=== PATIENT | female | born 1945 | race Caucasian/White ===

== ENCOUNTER → 2018-12-04 | Outpatient (CLI) | payer MEDICARE, MEDICAID ==
--- NOTE | 2018-12-04 11:38 | REP ---
Bilateral lower extremity arterial Doppler ultrasound: History: Bilateral leg pain. The vein graft installed right leg. Findings: Ankle brachial indices are low bilaterally measured at 0.79 on the right and 0.48 on the left. A reversed greater saphenous vein graft is seen from the right common femoral artery to the tibioperoneal trunk in the right leg. This graft is patent. Proximal anastomotic peak systolic velocity is 131 cm/sec in the graft. At mid graft, PSV is 62 cm/S. The distal graft PSV 41 and distal anastomotic PSV of 25 cm/S. The [place] superficial femoral artery on the right is occluded. Monophasic flow waveforms are seen throughout the right lower and left lower extremity arteries. 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 The popliteal artery is revascularized on the left. The proximal AT A could not be seen. Right lower extremity arterial Doppler velocity chart: CF A 221 cm/S Profunda 53 Proximal SFA occluded Mid SFA occluded Distal SFA occluded Popliteal 14 cm/S reverse flow Proximal AT A 37 Tibioperoneal trunk reverse flow 39 cm/S Proximal TESTING MACHINE OPERATOR not seen, Distal TESTING MACHINE OPERATOR 826 Distal AT A 80 Left lower extremity arterial Doppler velocity chart: CF A 141 cm/S Profunda 90 Proximal SFA 104/221 Mid SFA occluded Distal SFA occluded Popliteal reverse flow 38 cm/S Proximal a AT A not seen Tibioperoneal trunk 62 Proximal TESTING MACHINE OPERATOR 22 Distal TESTING MACHINE OPERATOR 28 Distal AT A 11 Electronically Signed by Jeff Escobar MD 12/04/2018 11:29 A
== END ==
LOC: M RAD 08:45
PROVIDERS: ATTEND Surgery Vascular Surgery
DX: I73.9 Peripheral vascular disease, unspecified (principal)

== ENCOUNTER → 2023-04-01 | Outpatient (CLI) | payer MEDICAID, MEDICARE ==
[~2023-04-01] MED LIST: ACET650T61 PO; ATOR1TAB21; CLOP75TA2; LOSA25TA13; METO1TAB32; SERT25TA21
== END ==
LOC: M PLARAD 15:01
PROVIDERS: ATTEND Specialist
DX: C78.01 Secondary malignant neoplasm of right lung (principal)
CPT/HCPCS: 78815; A9552

== ENCOUNTER → 2023-04-24 | Outpatient (CLI) | payer MEDICAID, MEDICARE ==
[~2023-04-24] MED LIST changes: +LIDOCAINE 1% MDV 20ML VIAL As Ordered ONE
[2023-04-24 08:25] VITALS: TEMP 98.2
[2023-04-24 09:16] LABS: INR 1.14; PROTHROMBIN TIME 14.3 SECONDS (12.5-14.5)
[2023-04-24 11:51] VITALS: BP 119/57; O2SAT 96
== END ==
LOC: M IRPRO 08:13
PROVIDERS: ATTEND Specialist
DX: C34.91 Malignant neoplasm of unspecified part of right bronchus or lung (principal)

== ENCOUNTER → 2023-05-03 | Outpatient (CLI) | payer MEDICARE ==
[~2023-05-03] MED LIST changes: -LIDOCAINE 1% MDV 20ML VIAL As Ordered ONE
== END ==
LOC: M ONCR 15:09
PROVIDERS: ATTEND General Practice
DX: C34.31 Malignant neoplasm of lower lobe, right bronchus or lung (principal); Z71.2 Person consulting for explanation of examination or test findings; Z79.02 Long term (current) use of antithrombotics/antiplatelets; Z79.899 Other long term (current) drug therapy; Z80.3 Family history of malignant neoplasm of breast; Z87.891 Personal history of nicotine dependence; Z88.5 Allergy status to narcotic agent; Z90.710 Acquired absence of both cervix and uterus

== ENCOUNTER 2023-05-24 10:02 | Outpatient (RCR) | payer MEDICARE ==
[~2023-05-24 10:02] MED LIST changes: -ATOR1TAB21; +ATOR1TAB21 PO; -CLOP75TA2; +CLOP75TA2 PO; -LOSA25TA13; +LOSA25TA13 PO; -METO1TAB32; +METO1TAB32 PO; -SERT25TA21; +SERT25TA21 PO
== END 2023-06-20 ==
LOC: M ONCR 10:02
PROVIDERS: ATTEND General Practice
DX: Z51.0 Encounter for antineoplastic radiation therapy (principal); C34.31 Malignant neoplasm of lower lobe, right bronchus or lung

== ENCOUNTER 2023-07-04 09:57 | Observation (INO) | payer MEDICARE ==
[~2023-07-04] VITALS: Ht 167.6 cm; Wt 42.7 kg
[2023-07-04 14:53] LABS: BASO % 0.2 % (0.0-1.0); EOS % 0.3 % (0.0-3.0); HEMOGLOBIN 10.3 g/dl (12.0-15.5); LYMPH # 0.3 10^3/uL (1.5-5.0); LYMPH % 2.5 % (24.0-44.0); MEAN CORPUSCULAR HEMOGLOBIN 23.6 pg (27.0-33.0); MEAN CORPUSCULAR HGB CONC 29.4 g/dl (32.0-36.5); MEAN CORPUSCULAR VOLUME 80.1 fl (80.0-96.0); MONO # 0.7 10^3/uL (0.0-0.8); MONO % 5.7 % (2.0-8.0); NEUTROPHILS # 11.5 10^3/uL (1.5-8.5); NEUTROPHILS % 90.9 % (36.0-66.0); PLATELET COUNT, AUTOMATED 544 10^3/uL (150-450); RED BLOOD COUNT 4.37 10^6/uL (4.00-5.40); WHITE BLOOD COUNT 12.6 10^3/uL (4.0-10.0)
[2023-07-04] MEDS: ACETAMINOPHEN 325 MG TAB PO ONE (15:16)
[2023-07-04 15:19] LABS: ALBUMIN 2.2 G/DL (3.2-5.2); ALKALINE PHOSPHATASE 89 U/L (46-116); ALT/SGPT 29 U/L (7.0-40); AST/SGOT 27 U/L (<34); BILIRUBIN,TOTAL 0.2 MG/DL (0.3-1.2); BLOOD UREA NITROGEN 17 MG/DL (9-23); CALCIUM LEVEL 9.5 MG/DL (8.3-10.6); CARBON DIOXIDE LEVEL 29 MMOL/L (20-31); CHLORIDE LEVEL 98 MMOL/L (98-107); CREATININE FOR GFR 0.56 MG/DL (0.55-1.30); GLOMERULAR FILTRATION RATE > 60.0 (>39); GLUCOSE, FASTING 158 MG/DL (74-106); POTASSIUM SERUM 4.2 MMOL/L (3.5-5.1); SODIUM LEVEL 134 MMOL/L (136-145); TOTAL PROTEIN 6.4 G/DL (5.7-8.2)
[2023-07-04] MEDS ORDERED: HOME MED LIST COMPLETE! XX SCH (16:45)
[2023-07-04] MEDS: CYCLOBENZAPRINE 5MG TABLET PO SCH (17:43)
[2023-07-04] MEDS: GABAPENTIN 100 MG CAP PO SCH (17:43)
[2023-07-04] MEDS: LIDOCAINE 5% (LIDODERM) PATCH TD SCH (17:51)
[2023-07-04 20:49] VITALS: BP 146/66; TEMP 98.2; O2SAT 93
[2023-07-04] MEDS: DOCUSATE SODIUM 100MG CAPSULE PO SCH (21:05)
[2023-07-04] MEDS: DICLOFENAC EPOLAMINE 1.3% PATCH TOP SCH (21:06)
[2023-07-05] VITALS (7 sets, daily range): BP systolic 112–144; BP diastolic 55–68; TEMP 98–99.9; O2SAT 86–95
[2023-07-05 06:09] LABS: HEMOGLOBIN 8.8 g/dl (12.0-15.5); MEAN CORPUSCULAR HEMOGLOBIN 23.7 pg (27.0-33.0); MEAN CORPUSCULAR HGB CONC 30.3 g/dl (32.0-36.5); MEAN CORPUSCULAR VOLUME 78.2 fl (80.0-96.0); PLATELET COUNT, AUTOMATED 457 10^3/uL (150-450); RED BLOOD COUNT 3.71 10^6/uL (4.00-5.40)
[2023-07-05] MEDS: SERTRALINE HCL 25 MG TABLET PO SCH (08:55)
[2023-07-05] MEDS: CLOPIDOGREL 75 MG TAB PO SCH (08:55)
[2023-07-05] MEDS: ENOXAPARIN 30MG/0.3ML SYRINGE (J1650 PER 10MG) SC SCH (08:55)
[2023-07-05] MEDS: METOPROLOL SUCC *XL* 25MG TAB (TopROL *XL*) PO SCH (08:57)
[2023-07-05] MEDS ORDERED: traMADol 50 MG TAB PO PRN (15:20)
[2023-07-05 17:01] LABS: HEMATOCRIT 34.4 % (36.0-47.0); HEMOGLOBIN 10.1 g/dl (12.0-15.5); MEAN CORPUSCULAR HGB CONC 29.4 g/dl (32.0-36.5); MEAN CORPUSCULAR VOLUME 81.9 fl (80.0-96.0); PLATELET COUNT, AUTOMATED 499 10^3/uL (150-450); WHITE BLOOD COUNT 18.3 10^3/uL (4.0-10.0)
[2023-07-05] MEDS: ATORVASTATIN 20 MG TAB PO SCH (20:06)
[2023-07-05] MEDS: ACETAMINOPHEN TAB 650MG DOSE (2X325MG) PO PRN (20:06)
[2023-07-05] MEDS: LOSARTAN 25 MG TAB PO SCH (20:07)
[2023-07-05 20:19] LABS: C REACTIVE PROTEIN QUANTITATIV 8.5 MG/DL (<1.0)
[2023-07-05 20:32] LABS: PROCALCITONIN 0.1 ng/ml
[2023-07-06] VITALS: BP 141/66; TEMP 98.4; O2SAT 93
[2023-07-06 05:58] LABS: HEMOGLOBIN 8.9 g/dl (12.0-15.5); MEAN CORPUSCULAR HEMOGLOBIN 23.4 pg (27.0-33.0); MEAN CORPUSCULAR HGB CONC 29.7 g/dl (32.0-36.5); MEAN CORPUSCULAR VOLUME 78.9 fl (80.0-96.0); PLATELET COUNT, AUTOMATED 424 10^3/uL (150-450); WHITE BLOOD COUNT 9.6 10^3/uL (4.0-10.0)
[2023-07-06 06:00] VITALS: BP 140/66; TEMP 98.4; O2SAT 93
[2023-07-06 10:20] VITALS: BP 144/63; TEMP 98.5; O2SAT 93
[2023-07-06 12:31] LABS: PERCENT SATURATION 7.6 % (13.2-45.0)
[2023-07-06 12:33] LABS: FERRITIN 214.2 NG/ML (7.3-270.7)
[2023-07-06 12:34] LABS: FOLATE 6.64 NG/ML (>5.4)
[2023-07-06 14:40] VITALS: BP 134/62; TEMP 98.3; O2SAT 94
[2023-07-06] MEDS: FERRIC CARBOXYMALTOSE INJ 750 MG, VIAL MATE ADAPTER 1 EACH in NS 250 ML IV ONE (17:05)
[2023-07-06] MEDS: FOLIC ACID 1MG TAB PO SCH (17:05)
[2023-07-06] MEDS: FERRIC CARBOXYMALTOSE IV ONE (17:40)
[2023-07-06] MEDS: NS IV ONE (17:40)
[2023-07-06 20:30] VITALS: BP 102/63; TEMP 98.4; O2SAT 88
[2023-07-06 21:33] VITALS: O2SAT 93
[2023-07-07 05:34] VITALS: BP 104/49; TEMP 98.2; O2SAT 90
[2023-07-07 14:15] VITALS: BP 133/62; TEMP 98.5; O2SAT 92
[2023-07-07 20:22] VITALS: BP 114/53; TEMP 98.6; O2SAT 85
[2023-07-08 05:59] VITALS: BP 105/50; TEMP 98.6; O2SAT 84
[2023-07-08 08:00] VITALS: BP 104/51; TEMP 97.9; O2SAT 91
[2023-07-08 12:00] VITALS: BP 111/52; TEMP 99; O2SAT 94
[2023-07-08 14:00] VITALS: BP 111/52; TEMP 99; O2SAT 94
[2023-07-08 20:02] VITALS: BP 100/53; TEMP 98.8; O2SAT 97
[2023-07-09 06:03] VITALS: BP 112/58; TEMP 98.1; O2SAT 97
[2023-07-09 14:00] VITALS: BP 129/60; TEMP 97.5; O2SAT 93
[2023-07-09 20:00] VITALS: BP 123/60; TEMP 98.2; O2SAT 93
[2023-07-10 05:46] VITALS: BP 139/65; TEMP 97.7; O2SAT 94
[2023-07-10 11:01] VITALS: BP 127/60; TEMP 98.1; O2SAT 97
[2023-07-10 13:33] LABS: ABG BASE EXCESS 1.6 (-2.0-2.0); ABG HCO3 24.8 MMOL/L (22.0-26.0); ABG O2 SATURATION 99.9 % (95.0-99.0); ABG PARTIAL PRESSURE CO2 33.8 mmHg (35.0-45.0); ABG TOTAL CO2 25.8 MMOL/L (23.0-31.0); ABG pH (ARTERIAL) 7.483 UNITS (7.350-7.450)
[2023-07-11 05:56] VITALS: BP 129/61; TEMP 97.7; O2SAT 96
[2023-07-12 05:50] VITALS: BP 98/68; TEMP 98.6; O2SAT 93
[2023-07-13 06:55] VITALS: BP 114/54; TEMP 98.6; O2SAT 97
[2023-07-14 05:59] VITALS: BP 139/67; TEMP 97.9; O2SAT 96
[2023-07-15 06:04] VITALS: TEMP 97.9; O2SAT 98
[2023-07-15 06:20] VITALS: BP 111/61
[2023-07-15 10:52] VITALS: BP 127/73
[2023-07-16 05:44] VITALS: BP 123/67; TEMP 98.1; O2SAT 86
[2023-07-17 05:46] VITALS: BP 110/61; TEMP 97.9; O2SAT 94
[2023-07-17] MEDS: MOM 30ML SUSPENSION UDC PO PRN (09:18)
[2023-07-17 19:56] VITALS: BP 134/80
[2023-07-18 05:38] VITALS: BP 140/69; TEMP 98.1; O2SAT 91
[2023-07-18] MEDS: ONDANSETRON 4MG ORAL DISINTEGRATING TAB PO PRN (12:58)
[2023-07-18 19:52] VITALS: BP 117/56
[2023-07-19 05:37] VITALS: BP 118/54; TEMP 97.9; O2SAT 95
[2023-07-20 06:00] VITALS: BP 120/54; TEMP 98.1; O2SAT 96
[2023-07-20 22:00] VITALS: BP 110/60; TEMP 97.7; O2SAT 92
[2023-07-21 05:06] VITALS: BP 118/62; TEMP 97; O2SAT 92
[2023-07-21 20:34] VITALS: BP 116/54
[2023-07-22 05:58] VITALS: BP 115/50; TEMP 97.7; O2SAT 97
[2023-07-23 06:02] VITALS: BP 128/52; TEMP 97.7; O2SAT 98
[2023-07-24 05:35] VITALS: BP 102/56; TEMP 95; O2SAT 94
[2023-07-25 06:12] VITALS: BP 112/54; TEMP 97.7; O2SAT 94
[2023-07-25 20:55] VITALS: BP 118/65
[2023-07-26 06:16] VITALS: BP 116/64; TEMP 97.7; O2SAT 92
[2023-07-26] MEDS: MIRALAX *UNIT DOSE* 17GM PACKET PO SCH (08:25)
[2023-07-26] MEDS: FERROUS SULFATE 325MG TAB PO SCH (16:05)
[2023-07-27 05:39] VITALS: BP 118/63; TEMP 97.4; O2SAT 92
[2023-07-28 06:00] VITALS: BP 113/57; TEMP 97.7; O2SAT 96
[2023-07-28 14:05] VITALS: BP 128/62; TEMP 98.6; O2SAT 90
[2023-07-29 06:00] VITALS: BP 137/64; TEMP 97.7; O2SAT 97
[2023-07-29 20:20] VITALS: BP 134/64
[2023-07-30 05:56] VITALS: BP 113/62; TEMP 97.7; O2SAT 93
[2023-07-30] MEDS: GABAPENTIN 100 MG CAP PO SCH (16:56)
[2023-07-31 05:25] VITALS: BP 112/62; TEMP 97.5; O2SAT 91
[2023-07-31 21:21] VITALS: BP 115/56
[2023-08-01 06:00] VITALS: BP 111/58; TEMP 97.7; O2SAT 92
[2023-08-02 06:16] VITALS: BP 118/66; TEMP 98.2; O2SAT 96
[2023-08-02 09:39] VITALS: BP 117/60
[2023-08-02] MEDS ORDERED: LIDO5TD TD (10:18)
[2023-08-02] MEDS ORDERED: GABA-1171 PO (10:18)
[2023-08-02] MEDS ORDERED: DICL1PAT6 TOP (10:18)
[2023-08-02] MEDS ORDERED: FERR1TAB8 PO (10:18)
[2023-09-04] MEDS ORDERED: SENN-186 PO (09:05)
[2023-09-04] MEDS ORDERED: MIRA3350 PO (09:05)
[2023-09-04] MEDS ORDERED: MM S100C PO (09:05)
[2023-09-04] MEDS ORDERED: LACT20EL PO (09:05)
== END 2023-08-02 11:25 ==
LOC: M ED 09:57 → M MS5PR 09:58 → M ED INP 09:58 → M MS5PR 20:37
PROVIDERS: ADMIT Student in an Organized Health Care Education/Training Program; ATTEND Internal Medicine
DX: S70.01XA Contusion of right hip, initial encounter (principal); W05.0XXA Fall from non-moving wheelchair, initial encounter; Y92.89 Other specified places as the place of occurrence of the external cause; Y93.89 Activity, other specified; Y99.8 Other external cause status; C34.90 Malignant neoplasm of unspecified part of unspecified bronchus or lung; Z92.3 Personal history of irradiation; D50.9 Iron deficiency anemia, unspecified; R53.1 Weakness; R62.7 Adult failure to thrive; E43 Unspecified severe protein-calorie malnutrition; D72.829 Elevated white blood cell count, unspecified; R32 Unspecified urinary incontinence; M19.90 Unspecified osteoarthritis, unspecified site; I73.00 Raynaud's syndrome without gangrene; I50.21 Acute systolic (congestive) heart failure; I11.0 Hypertensive heart disease with heart failure; E78.5 Hyperlipidemia, unspecified; F32.A Depression, unspecified; J44.9 Chronic obstructive pulmonary disease, unspecified; K59.00 Constipation, unspecified; Z87.828 Personal history of other (healed) physical injury and trauma; R26.2 Difficulty in walking, not elsewhere classified; Z96.641 Presence of right artificial hip joint; Z91.81 History of falling; Z87.891 Personal history of nicotine dependence; Z88.5 Allergy status to narcotic agent; Z79.899 Other long term (current) drug therapy; Z79.02 Long term (current) use of antithrombotics/antiplatelets; Z66 Do not resuscitate
CPT/HCPCS: 36415; 70450; 71045; 72125; 73502; 73521; 77336; 77386; 80053; 81001; 82607; 82728; 82746; 82803; 83550; 84145; 85025; 85027; 85652; 86140; 87635; 92526; 92610; 96372; 96374; 97162; 97165; 97530; 99284; G0378; J1439; J1650

== ENCOUNTER 2023-07-05 09:30 | Outpatient (RCR) | payer MEDICARE | END 2023-07-21 | LOC: M ONCR 09:30 | PROVIDERS: ATTEND General Practice | DX: Z51.0 Encounter for antineoplastic radiation therapy (principal); C34.11 Malignant neoplasm of upper lobe, right bronchus or lung ==

== ENCOUNTER → 2023-08-26 | Outpatient (REF) ==
[~2023-08-26] MED LIST changes: +DICL1PAT6 TOP; +FERR1TAB8 PO; +GABA-1171 PO; +LIDO5TD TD
[2023-08-26 08:24] LABS: HEMATOCRIT 41.7 % (36.0-47.0); HEMOGLOBIN 12.5 g/dl (12.0-15.5); MEAN CORPUSCULAR VOLUME 90.1 fl (80.0-96.0); PLATELET COUNT, AUTOMATED 254 10^3/uL (150-450); RED BLOOD COUNT 4.63 10^6/uL (4.00-5.40); WHITE BLOOD COUNT 4.7 10^3/uL (4.0-10.0)
[2023-08-26 08:53] LABS: BLOOD UREA NITROGEN 27 MG/DL (9-23); CALCIUM LEVEL 8.8 MG/DL (8.3-10.6); CARBON DIOXIDE LEVEL 33 MMOL/L (20-31); CHLORIDE LEVEL 104 MMOL/L (98-107); CREATININE FOR GFR 0.59 MG/DL (0.55-1.30); GLOMERULAR FILTRATION RATE > 60.0 (>39); GLUCOSE, FASTING 84 MG/DL (74-106); POTASSIUM SERUM 4.5 MMOL/L (3.5-5.1); SODIUM LEVEL 139 MMOL/L (136-145)
== END ==
LOC: SKLAB7 06:46
PROVIDERS: ATTEND Internal Medicine
DX: D64.9 Anemia, unspecified (principal); I10 Essential (primary) hypertension

== ENCOUNTER → 2023-09-04 | Outpatient (REF) ==
[~2023-09-04] MED LIST changes: +LACT20EL PO; +MIRA3350 PO; +MM S100C PO; +SENN-186 PO
[2023-09-04 14:13] LABS: INR 1.04; PROTHROMBIN TIME 13.3 SECONDS (12.5-14.5)
== END ==
LOC: SKLAB3 14:01
PROVIDERS: ATTEND Internal Medicine
DX: Z01.818 Encounter for other preprocedural examination (principal)

== ENCOUNTER → 2023-09-05 | Outpatient (CLI) | payer BC, MEDICAID, MEDICARE ==
[~2023-09-05] VITALS: Ht 175.3 cm; Wt 38.1 kg
[~2023-09-05] MED LIST changes: +LIDOCAINE 1% MDV 20ML VIAL As Ordered ONE; +LIDOCAINE W/EPINEPHRINE 1% 20ML VIAL As Ordered ONE; +MIDAZOLAM INJ 2MG/2ML VIAL As Ordered ONE; +NS 1,000 ML IV SCH; +ceFAZolin 2 GM/D5W 50 ML IV BAG As Ordered ONE; +ceFAZolin SOD 2 GM in IV 1 EA IV ONE
[2023-09-05 12:20] VITALS: TEMP 97.1
[2023-09-05 15:03] VITALS: BP 156/70; O2SAT 94
== END ==
LOC: M IRPRO 12:15
PROVIDERS: ATTEND Specialist
DX: C34.90 Malignant neoplasm of unspecified part of unspecified bronchus or lung (principal)
CPT/HCPCS: 36561; 99152; 99153; J0690; J2250

== ENCOUNTER → 2023-09-11 | Outpatient (REF) ==
[~2023-09-11] MED LIST changes: -LIDOCAINE 1% MDV 20ML VIAL As Ordered ONE; -LIDOCAINE W/EPINEPHRINE 1% 20ML VIAL As Ordered ONE; -MIDAZOLAM INJ 2MG/2ML VIAL As Ordered ONE; -NS 1,000 ML IV SCH; -ceFAZolin 2 GM/D5W 50 ML IV BAG As Ordered ONE; -ceFAZolin SOD 2 GM in IV 1 EA IV ONE
[2023-09-11 09:18] LABS: BASO % 0.2 % (0.0-1.0); EOS # 0.1 10^3/uL (0.0-0.5); EOS % 2.5 % (0.0-3.0); HEMATOCRIT 42.8 % (36.0-47.0); HEMOGLOBIN 13.3 g/dl (12.0-15.5); LYMPH % 18.3 % (24.0-44.0); MEAN CORPUSCULAR HEMOGLOBIN 28.2 pg (27.0-33.0); MEAN CORPUSCULAR HGB CONC 31.1 g/dl (32.0-36.5); MEAN CORPUSCULAR VOLUME 90.9 fl (80.0-96.0); MONO # 0.5 10^3/uL (0.0-0.8); MONO % 8.3 % (2.0-8.0); NEUTROPHILS # 3.9 10^3/uL (1.5-8.5); NEUTROPHILS % 70.3 % (36.0-66.0); PLATELET COUNT, AUTOMATED 215 10^3/uL (150-450); RED BLOOD COUNT 4.71 10^6/uL (4.00-5.40); WHITE BLOOD COUNT 5.5 10^3/uL (4.0-10.0)
[2023-09-11 09:41] LABS: ALKALINE PHOSPHATASE 105 U/L (46-116); ALT/SGPT 31 U/L (7.0-40); AST/SGOT 22 U/L (<34); BILIRUBIN,TOTAL 0.3 MG/DL (0.3-1.2); BLOOD UREA NITROGEN 30 MG/DL (9-23); CALCIUM LEVEL 9.4 MG/DL (8.3-10.6); CARBON DIOXIDE LEVEL 30 MMOL/L (20-31); CHLORIDE LEVEL 103 MMOL/L (98-107); CREATININE FOR GFR 0.55 MG/DL (0.55-1.30); GLOMERULAR FILTRATION RATE > 60.0 (>39); GLUCOSE, FASTING 113 MG/DL (74-106); POTASSIUM SERUM 4.3 MMOL/L (3.5-5.1); SODIUM LEVEL 138 MMOL/L (136-145); TOTAL PROTEIN 6.7 G/DL (5.7-8.2)
[2023-09-11 09:43] LABS: THYROID STIMULATING HORMONE 2.949 uIU/ML (0.55-4.78); THYROXINE (T4) 6.5 UG/DL (4.5-10.9)
== END ==
LOC: SKLAB3 07:37
PROVIDERS: ATTEND Internal Medicine
DX: C34.90 Malignant neoplasm of unspecified part of unspecified bronchus or lung (principal)

== ENCOUNTER → 2023-10-02 | Outpatient (CLI) | payer BC, MEDICAID, MEDICARE ==
[~2023-10-02] MED LIST changes: +GASTROGRAFIN SOLUTION 30ML As Ordered ONE; +ISOVUE-370 76% 100ML VIAL As Ordered ONE
== END ==
LOC: M RAD 10:54
PROVIDERS: ATTEND General Practice
DX: C34.11 Malignant neoplasm of upper lobe, right bronchus or lung (principal); J43.9 Emphysema, unspecified; N28.1 Cyst of kidney, acquired
CPT/HCPCS: 71260; 74177; Q9963; Q9967

== ENCOUNTER → 2023-10-10 | Outpatient (CLI) | payer MEDICARE ==
[~2023-10-10] MED LIST changes: -GASTROGRAFIN SOLUTION 30ML As Ordered ONE; -ISOVUE-370 76% 100ML VIAL As Ordered ONE
== END ==
LOC: M ONCR 10:26
PROVIDERS: ATTEND General Practice
DX: C34.11 Malignant neoplasm of upper lobe, right bronchus or lung (principal); Z71.2 Person consulting for explanation of examination or test findings; Z74.1 Need for assistance with personal care; Z88.5 Allergy status to narcotic agent; Z79.899 Other long term (current) drug therapy; Z87.891 Personal history of nicotine dependence; Z92.3 Personal history of irradiation

== ENCOUNTER 2023-10-14 21:35 | Inpatient (IN) | payer MEDICARE ==
[~2023-10-14] VITALS: Ht 162.6 cm; Wt 47.9 kg
[2023-10-14 21:48] VITALS: TEMP 102.2
[2023-10-14 21:53] LABS: ABG BASE EXCESS -12.1 (-2.0-2.0); ABG HCO3 22.1 MMOL/L (22.0-26.0); ABG O2 SATURATION 85.1 % (95.0-99.0); ABG TOTAL CO2 25.1 MMOL/L (23.0-31.0)
[2023-10-14 21:55] LABS: ABG PARTIAL PRESSURE CO2 96.9 mmHg (35.0-45.0); ABG pH (ARTERIAL) 6.976 UNITS (7.350-7.450)
[2023-10-14 22:15] LABS: BASO # 0.1 10^3/uL (0.0-0.2); BASO % 0.3 % (0.0-1.0); EOS # 0.1 10^3/uL (0.0-0.5); EOS % 0.4 % (0.0-3.0); HEMATOCRIT 50.2 % (36.0-47.0); HEMOGLOBIN 15.1 g/dl (12.0-15.5); LYMPH # 4.1 10^3/uL (1.5-5.0); LYMPH % 20.6 % (24.0-44.0); MEAN CORPUSCULAR HEMOGLOBIN 28.9 pg (27.0-33.0); MEAN CORPUSCULAR HGB CONC 30.1 g/dl (32.0-36.5); MONO # 1.4 10^3/uL (0.0-0.8); NEUTROPHILS % 70.9 % (36.0-66.0); PLATELET COUNT, AUTOMATED 367 10^3/uL (150-450); RED BLOOD COUNT 5.23 10^6/uL (4.00-5.40); WHITE BLOOD COUNT 19.8 10^3/uL (4.0-10.0)
[2023-10-14] MEDS: IPRATROPIUM 0.5MG/ALBUTEROL 2.5MG INH SOL UD 3ML (DUONEB) NEB PRN (22:15)
[2023-10-14] MEDS: methylPREDNISolone 125MG 2ML VIAL IV ONE (22:18)
[2023-10-14 22:25] LABS: INR 1.1; PROTHROMBIN TIME 13.9 SECONDS (12.5-14.5)
[2023-10-14] MEDS ORDERED: MORPHINE 4 MG/ML 1ML VIAL IV ONE (22:25)
[2023-10-14 22:45] LABS: RSV AMPLIFICATION NEGATIVE (NEGATIVE)
[2023-10-14] MEDS: LORazepam 2 MG/ML 1ML VIAL IV STA (22:49)
[2023-10-14] MEDS: HYDROMORPHONE HCL 0.5 MG/ 0.5 ML SYRINGE IV ONE (22:50)
[2023-10-14] MEDS: SCOPOLAMINE 1MG TRANSDERMAL PATCH TOP ONE (22:50)
[2023-10-14] MEDS ORDERED: FLEET ENEMA PR PRN (23:50)
[2023-10-14] MEDS ORDERED: SCOPOLAMINE 1MG TRANSDERMAL PATCH TOP PRN (23:50)
[2023-10-14] MEDS ORDERED: ONDANSETRON 4MG 2ML VIAL IV PRN (23:50)
[2023-10-14] MEDS ORDERED: ACETAMINOPHEN 650MG SUPP PR PRN (23:50)
[2023-10-15] VITALS: BP 77/48
[2023-10-15 00:15] VITALS: O2SAT 94
[2023-10-15] MEDS ORDERED: FERR1TAB8 PO (01:53)
[2023-10-15] MEDS ORDERED: NEUR100C PO (02:03)
[2023-10-15] MEDS ORDERED: MIRA33506 PO (02:03)
[2023-10-15] MEDS ORDERED: FLEEENE12 PR (02:04)
[2023-10-15] MEDS ORDERED: GUAI100S51 PO (02:04)
[2023-10-15] MEDS ORDERED: MILKSUS3 PO (02:04)
[2023-10-15] MEDS ORDERED: LACT237L59 PO (02:04)
[2023-10-15] MEDS ORDERED: ACET-907 PO (02:04)
[2023-10-15] MEDS ORDERED: DULC10SU2 PR (02:04)
[2023-10-15] MEDS ORDERED: NIRM1TAB14 PO (02:04)
[2023-10-15] MEDS ORDERED: ALBU8.5H INH (02:04)
[2023-10-15] MEDS ORDERED: ONDA-83 PO (02:10)
[2023-10-15] MEDS ORDERED: HOME MED LIST COMPLETE! XX SCH (02:15)
[2023-10-15] MEDS: LORazepam 2 MG/ML 1ML VIAL IV PRN (06:32)
[2023-10-15] MEDS: MORPHINE 2 MG/ML 1ML VIAL IV PRN (18:13)
[2023-10-15] MEDS: MORPHINE 10MG/0.5ML ORAL CONCENTRATE SOLUTION U/D SL PRN (23:27)
[2023-10-16] MEDS: LORazepam 2 MG/ML 1ML VIAL IV PRN (00:35)
[2023-10-16] MEDS: MORPHINE 10MG/0.5ML ORAL CONCENTRATE SOLUTION U/D SL PRN ×2 (10:57→14:15)
[2023-10-16] MEDS: MORPHINE SULF IN 0.9% NACL 100 MG in IV 1 EA IV SCH (16:56)
== END 2023-10-18 11:45 | disposition expired | DRG 951 ==
LOC: M ED 21:35 → OBSVTOIN 21:36 → M ED INP 21:36 → ENRESERV 10-15 00:06 → M MS5PR 10-15 00:45
PROVIDERS: ADMIT Internal Medicine; ATTEND Student in an Organized Health Care Education/Training Program
DX: Z51.5 Encounter for palliative care (principal); U07.1 COVID-19; J96.01 Acute respiratory failure with hypoxia; J96.02 Acute respiratory failure with hypercapnia; E87.29 Other acidosis; C34.11 Malignant neoplasm of upper lobe, right bronchus or lung; I11.0 Hypertensive heart disease with heart failure; F32.A Depression, unspecified; J44.9 Chronic obstructive pulmonary disease, unspecified; I50.9 Heart failure, unspecified; D64.9 Anemia, unspecified; Z66 Do not resuscitate; Z90.12 Acquired absence of left breast and nipple; Z79.899 Other long term (current) drug therapy; Z88.5 Allergy status to narcotic agent